=== PATIENT | male | born 1980 | race Caucasian/White ===

== ENCOUNTER 2019-08-15 21:45 | Emergency (ER) | payer MEDICAID ==
[~2019-08-15] VITALS: Ht 175.3 cm; Wt 90.7 kg
[2019-08-15 22:08] VITALS: BP 132/85
--- NOTE | 2019-08-15 22:08 | NUR ---
ED Nurse Note: WAlk-in patient with complaints of fever, will continue to monitor.
--- NOTE | 2019-08-15 22:17 | Emergency Room Report ---
History of Present Illness General Chief Complaint: General Complaint Source: Patient Present Illness HPI Is a 38-year-old male who is homeless. He presents with chief complaint of feeling sick. He said he has nausea and vomiting for last couple days. Unable to keep anything down. Has abdominal cramp. No fever chills but no diarrhea. Nothing made it better. Nothing made it worse. He said he felt dehydrated. Denies any other complaint. Allergies: Coded Allergies: No Known Allergies (Unverified , 08/15/19) Patient History Past Medical History: none, see triage record, old chart reviewed Past Surgical History: none Pertinent Family History: none Social History: Reports: alcohol use Immunizations: other Reviewed Nursing Documentation: PMH: Agreed; PSxH: Agreed Nursing Documentation-PMH Past Medical History: No Stated History Review of Systems Eye: Denies: eye pain, blurred vision ENT: Denies: ear pain, nose congestion, throat swelling Respiratory: Denies: cough, shortness of breath Cardiovascular: Denies: chest pain, palpitations Gastrointestinal: Reports: abdominal pain, nausea, vomiting; Denies: diarrhea Musculoskeletal: Denies: back pain, joint pain Skin: Denies: rash Neurological: Denies: headache, numbness Endocrine: Denies: increased thirst, increased urine Hematologic/Lymphatic: Denies: easy bruising All Other Systems: negative except mentioned in HPI Physical Exam Vital Signs Date Time Temp Pulse Resp B/P (MAP) Pulse Ox O2 Delivery O2 Flow Rate FiO2 08/15/19 22:08 98.4 83 16 132/85 (101) 97 Room Air Vitals normal Sp02 EP Interpretation: reviewed, normal General Appearance: well appearing, no apparent distress, alert Head: normocephalic, atraumatic Eyes: bilateral eye PERRL, bilateral eye EOMI ENT: hearing grossly normal, normal pharynx Neck: full range of motion, supple, no meningismus Respiratory: chest non-tender, lungs clear, normal breath sounds Cardiovascular #1: regular rate, rhythm, no murmur Gastrointestinal: normal bowel sounds, non tender, no mass, no organomegaly, no bruit, non-distended Musculoskeletal: back normal, gait/station normal, normal range of motion Psychiatric: mood/affect normal Medical Decision Making Diagnostic Impression: Primary Impression: Abdominal pain Qualified Codes: R10.84 - Generalized abdominal pain ER Course Patient presents with abdominal pain and nausea and vomiting. No pain on my exam. Abdominal exam is benign. No evidence of an acute abdomen or obstruction. He is eating drinking here without any problem. Does not want to go to [facility]. Will discharge home. Last Vital Signs Date Time Temp Pulse Resp B/P (MAP) Pulse Ox O2 Delivery O2 Flow Rate FiO2 08/15/19 22:08 98.4 83 16 132/85 (101) 97 Room Air Status: improved Disposition: HOME, SELF-CARE Condition: Improved Additional Instructions: Follow-up with your doctor in 7 days. Return if symptoms worsen. Ricki Kirkpatrick MD Aug 15, 2019 22:17
--- NOTE | 2019-08-15 22:41 | NUR ---
ER DISCHARGE NOTE: Patient is cleared to be discharged per ERMD, pt is aox4, on room air, with stable vital signs. pt was given dc and prescription instructions, pt was able to verbalize understanding, pt id band removed without complications. pt is able to ambulate with steady gait. pt took all belongings. Addendum: 08/15/19 at 2259 by JONE ED Nurse Note: Patient provided with shoes prior to departure.
[2019-08-15 22:43] VITALS: BP 132/85
== END 2019-08-15 22:43 | disposition home or self-care (01) ==
LOC: EDSEX 21:45 → EMR 22:10
DX: R10.84 Generalized abdominal pain (principal); Z59.0 Homelessness
CPT/HCPCS: 99282